=== PATIENT | male | born 1940 | race Caucasian/White ===

== ENCOUNTER 2022-05-16 02:50 | Emergency (ER) | payer MEDICARE, SELFPAY ==
--- NOTE | ~2022-05-16 | US_ITS ---
EXAMINATION: LEFT LOWER EXTREMITY DEEP VENOUS ULTRASOUND CLINICAL INFORMATION: Left leg pain and swelling. COMPARISON: None. TECHNIQUE: Duplex Doppler imaging with compression maneuvers were performed of the left lower extremity deep venous system. FINDINGS: The visualized common femoral, femoral and popliteal veins demonstrate normal compressibility and color flow without evidence of venous thrombosis. Visualized portions of the calf veins demonstrate normal color fill-in and/or compressibility suggesting patency. There is no evidence of a Gonzalez's cyst. US/US venous duplex LE LT IMPRESSION: No evidence of deep venous thrombosis involving the left lower extremity.
--- NOTE | ~2022-05-16 | XR_ITS ---
EXAMINATION: XR KNEE, LEFT CLINICAL INFORMATION: Pain after fall COMPARISON: None TECHNIQUE: Four views of the left knee. FINDINGS: Osseous alignment is anatomic. There is moderate to severe tricompartmental joint space narrowing with associated osteophyte formation. No acute fracture is seen. Chronic appearing calcifications anterior to the proximal tibia. Vascular calcification is also noted. Small effusion is present. XR/XR knee LT 4V IMPRESSION: No fracture identified. Small effusion. Moderate to severe degenerative changes.
[2022-05-16 03:27] VITALS: BP 128/63; PULSE 92; RESP 16; TEMP 36.8; O2SAT 97; BMI 21.2
--- NOTE | 2022-05-16 03:49 | ED.LOWEXIN ---
HPI - Extremity Injury (Lower) General Chief Complaint: Extremity Injury, Lower Stated Complaint: left knee pain Time Seen by Provider: 05/16/22 03:38 Source: patient Mode of arrival: ambulatory Limitations: no limitations History of Present Illness HPI Narrative: 81 yo male with hx of afib watchman in place on eliquis, ESRD on HD, CHF, renal cancer on chemotherapy traveling from [place] - plans to go back this AM. He fell a few days ago. Now c/o worsening L knee pain since the fall. No other injuries reported. MD complaint: knee injury Onset (ago): day(s) (3) Injury: Left: knee Type of Injury: blunt Place: home Severity: moderate Relieving factors: immobilization Exacerbating factors: weight bearing, movement and palpation Context: fall and direct blow Associated symptoms: swelling Other symptoms: none Related Data Allergies Allergy/AdvReac Type Severity Reaction Status Date / Time No Known Allergies Allergy Verified 05/16/22 03:27 Review of Systems Review of Systems: Constitutional : No Fever, No Chills ENT/Mouth : No Ear Pain, No Hoarseness, No sore throat Eyes: No Eye Pain, No Swelling, No Redness, No Foreign Body Cardiovascular : No Chest Pain, No SOB, pos pedal edema L > R Respiratory : No Cough, No Dyspnea Gastrointestinal : No Nausea, No Vomiting, No Diarrhea, No abdominal Pain Genitourinary : No Dysuria, No Hematuria Musculoskeletal : positive joint pain, No Myalgias, pos Joint Swelling Skin : No Skin lacerations, No rash Neuro : No Weakness, No Numbness, No Loss of Consciousness, No Dizziness, No Headache Psych : No Anxiety/Panic, No Depression Heme/Lymph: no easy bruising, no Lymphadenopathy Endocrine : No Polyuria, No Polydipsia All other systems reviewed and are negative [facility] Past Medical History Attestation statement: The following information was validated with the patient. Medical History Afib CHF (congestive heart failure) ESRD (end stage renal disease) Pedal edema Renal carcinoma Social History Social History (Updated 05/16/22 @ 04:24 by Erna Shaver DO) Patient Tobacco Use Status: Tobacco use Unknown Advance Directives: No Advance Directives Information Provided: No Physical Exam Vital Signs: Vital Signs: Last Vital Signs Temp 98.2 F 05/16/22 03:27 Pulse 92 05/16/22 03:27 Resp 16 05/16/22 03:27 BP 128/63 05/16/22 03:27 Pulse Ox 97 05/16/22 03:27 O2 Del Method 05/16/22 03:27 BMI result Body Mass Index 21.2 Appearance: Alert. Oriented X3. No acute distress. Eyes: Pupils equal, round and reactive to light. ENT: Pharynx normal. Neck: Normal inspection. Neck supple. CVS: Normal heart rate and rhythm. Pulses normal. Respiratory: No respiratory distress. Breath sounds normal. Abdomen: Soft and non-tender. Skin: Skin warm and dry. Normal skin color. Normal skin turgor. Extremities: 2 to 3 + pitting lower extremity edema L >>> R with L knee effusion no erythema or warmth ttp along the knee itself Neuro: Oriented X 3. No motor deficit. No sensory deficit. Course Course Course Narrative: signed out to Dr. Teran pending US of L leg MDM - Extremity Injury (Lower) MDM Narrative Medical decision making narrative: 81 yo male with hx of afib watchman in place on eliquis, ESRD on HD, CHF, renal cancer here with c/o L knee pain s/p fall that has worsened over 3 days - at this time xrays ordered but the left leg is much more swollen from the knee down. I did wrap the knee with an DARSHAN wrap - he is [place] Intact, no signs of septic joint. Given changes in size of leg will obtain DVT US despite DOAC use. Discharge Plan Discharge Clinical Impression: Acute knee pain, Effusion of knee Patient Disposition: Still a Patient
[2022-05-16] MEDS: HYDROmorphone HCl 2 MG TABLET PO (04:18)
[2022-05-16] MEDS: HYDROmorphone HCl 2 MG/ML VIAL IM (06:24)
[2022-05-16 07:10] VITALS: BP 108/66; PULSE 91; RESP 18; O2SAT 94
--- NOTE | 2022-05-16 07:13 | PC.NURSE ---
pt resting but easily arousable, pt denies pain at this time, but states when he moves the left leg it starts to hurt, left knee is currently wrapped with flores wrap but noticeable peding edema of +2 that is traveling all the way up the knee, some edema on the right leg as well, respirations even and unlabored, vs stable
== END 2022-05-16 09:19 | disposition home or self-care (01) ==
PROVIDERS: Emergency Provider Emergency Medicine
DX: R60.0 Localized edema (principal); M25.562 Pain in left knee; M25.462 Effusion, left knee; Z79.899 Other long term (current) drug therapy
CPT/HCPCS: 73564; 93971; 96372; 99284; J1170